=== PATIENT | female | born 1945 | race Caucasian/White ===

== ENCOUNTER 2017-12-20 09:32 | Emergency (ER) | payer MEDICARE, OTHER ==
[~2017-12-20] VITALS: Ht 157.5 cm; Wt 79.5 kg
[2017-12-20 09:39] VITALS: BP 135/61
[2017-12-20] MEDS ORDERED: ketorolac tromethamine 15mg/ml inj. IM ONE (10:00)
[2017-12-20] MEDS ORDERED: ondansetron 4mg rapidly disintigrating tab PO ONE (10:00)
[2017-12-20 10:19] LABS: CLARITY,URINE CLOUDY (Clear); COLOR,URINE YELLOW (Yellow); GLUCOSE, URINE NEGATIVE (Neg); KETONES,URINE NEGATIVE (Neg); LEUKOCYTE ESTERASE ,URINE MODERATE (Neg); NITRITES, URINE NEGATIVE (Neg); OCCULT BLOOD,URINE MODERATE (Neg); PROTEIN,URINE TRACE mg/dl (Neg); UROBILINOGEN,URINE 0.2 E.U/dL (0.2-1.0)
[2017-12-20 10:24] LABS: UA COLLECTION TYPE CLN CATCH MIDSTREAM
[2017-12-20 10:27] LABS: BACTERIA,URINE 3+ /HPF (Neg); HYALINE CASTS 0-3 /LPF (NEGATIVE); MUCUS STRANDS MANY /LPF (Neg); SQUAMOUS EPITHELIAL CELL,UR MANY /LPF (FEW)
[2017-12-20] MEDS ORDERED: NITR100C6 PO (10:32)
== END 2017-12-20 10:54 | disposition home or self-care (01) ==
LOC: ER 09:33
DX: N39.0 Urinary tract infection, site not specified (principal); I10 Essential (primary) hypertension; Z79.899 Other long term (current) drug therapy
CPT/HCPCS: 81001; 96372; 99283; J1885